=== PATIENT | male | born 1990 | race Caucasian/White ===

== ENCOUNTER 2017-12-18 04:44 | Emergency (ER) | payer OTHER ==
[~2017-12-18] VITALS: Ht 177.8 cm; Wt 89.8 kg
[2017-12-18 04:45] VITALS: BP_SYST 146
[2017-12-18 05:06] VITALS: BP_SYST 146
== END 2017-12-18 05:04 ==
LOC: SED 04:44
DX: Z02.89 Encounter for other administrative examinations (principal)